=== PATIENT | female | born 1945 | race Caucasian/White ===

== ENCOUNTER 2016-08-31 08:25 | Day surgery (SDC) | payer MEDICARE, OTHER ==
--- NOTE | ~2016-08-31 | EGD ---
EGD REPORT [facility] [address] [place] [address] NAME: KRISTINA JENSEN : [birth year] STATUS : REG [facility] PAT#: [id number] AGE: 71 ADM/REG DATE : 08/31/16 MR#: [id number] REPORT SERV DATE: 08/31/16 DICTATED BY: REECE SMITH DATE: 08/31/16 REPORT STATUS : Draft TRANSCRIBED BY: [employer] DATE: 08/31/16 [facility] Center Patient Name: Kristina Jensen Date of : 1945 Attending MD: REECE SMITH, Procedure Date No Time: 08/31/2016 Procedure: Upper GI endoscopy Indications: Follow-up of benign duodenal tumor Referring MD: BLAYNE TOURE MD Medicines: Monitored Anesthesia Care Complications: No immediate complications. Estimated blood loss: None. Procedure: Pre-Anesthesia Assessment: - ASA Grade Assessment: II - A patient with mild systemic disease. After obtaining informed consent, the endoscope was passed under direct vision. Throughout the procedure, the patient's blood pressure, pulse, and oxygen saturations were monitored continuously. The GIF [id number] was introduced through the mouth, and advanced to the second part of duodenum. The upper GI endoscopy was accomplished without difficulty. The patient tolerated the procedure well. Findings: The esophagus was normal. The stomach was normal. A single 10 mm sessile polyp with no bleeding was found in the third part of the duodenum. The polyp was removed with a hot snare. Resection and retrieval were complete. Coagulation for tissue destruction using argon plasma at 1 liter/minute and 25 vasquez was successful. The exam of the duodenum was otherwise normal. Using the endoscope, the video capsule enteroscope was advanced into the 2nd part of the duodenum. Impression: - Normal esophagus. - Normal stomach. - A single duodenal polyp. Resected and retrieved. Treated with thermal therapy. - Successful completion of the Video Capsule Enteroscope placement. Recommendation: - Return to previous diet. - Continue present medications. - Await pathology results. - Repeat the upper endoscopy in 6 months for EGD REPORT [facility] [address] [place], [place] [address] [place]. [address] NAME: KRISTINA JENSEN : [birth year] STATUS : REG [facility]#: [id number] AGE: 71 ADM/REG DATE : 08/31/16 MR#: [id number] REPORT SERV DATE: 08/31/16 DICTATED BY: REECE SMITH DATE: 08/31/16 REPORT STATUS : Draft TRANSCRIBED BY: [employer] DATE: 08/31/16 surveillance. 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 All rights reserved. The codes documented in this report are preliminary and upon professor of pathology review may be revised to meet current compliance requirements. REECE SMITH, 08/31/2016 10:26 AM Number of Addenda: 0 Note Initiated On: 08/31/2016 8:48 AM Scope Withdrawal Time 0 hours 0 minutes 0 seconds [address] [place] [address]
[~2016-08-31 08:25] MED LIST: CARD30 PO; GUAIFENESI4 PO; PEPCID40 MG PO; VITAMIN D2000 UNIT PO
== END 2016-08-31 23:59 | disposition home health service (06) ==
LOC: DMU 08:25
PROVIDERS: Internal Medicine Gastroenterology
PROC: 0DB98ZZ Excision of Duodenum, Via Natural or Artificial Opening Endoscopic (ICD-10-PCS; principal; 2016-08-31 10:00)
PROC: 0W3P8ZZ Control Bleeding in Gastrointestinal Tract, Via Natural or Artificial Opening Endoscopic (ICD-10-PCS; 2016-08-31 10:00)
DX: D13.2 Benign neoplasm of duodenum (principal); I48.92 Unspecified atrial flutter; D64.9 Anemia, unspecified; M19.90 Unspecified osteoarthritis, unspecified site; K21.9 Gastro-esophageal reflux disease without esophagitis; Z88.2 Allergy status to sulfonamides; Z88.8 Allergy status to other drugs, medicaments and biological substances; Z90.49 Acquired absence of other specified parts of digestive tract; Z90.710 Acquired absence of both cervix and uterus
CPT/HCPCS: 88305